=== PATIENT | male | born 1935 | race Caucasian/White ===

== ENCOUNTER → 2017-04-25 | Outpatient (CLI) | payer OTHER, MEDICARE | LOC: BHFA 14:00 | PROVIDERS: ATTEND Internal Medicine Cardiovascular Disease | DX: I25.10 Atherosclerotic heart disease of native coronary artery without angina pectoris (principal) ==

== ENCOUNTER → 2017-05-03 | Outpatient (CLI) | payer OTHER, MEDICARE | LOC: BHFA 13:30 | PROVIDERS: ATTEND Internal Medicine Cardiovascular Disease | DX: I25.10 Atherosclerotic heart disease of native coronary artery without angina pectoris (principal) | CPT/HCPCS: 78452; 93017; A9500; J2785 ==

== ENCOUNTER 2017-05-11 09:50 | Observation (INO) | payer OTHER, MEDICARE ==
[2017-05-11] MEDS ORDERED: NS 1,000 ML IV ONE (09:52)
[2017-05-11] MEDS ORDERED: ASPIRIN EC 325 MG TAB PO ONE (09:52)
[2017-05-11] MEDS ORDERED: diphenhydrAMINE 25 MG CAP PO ONE (09:52)
[2017-05-11] MEDS ORDERED: DIAZEPAM 5 MG TAB PO ONE (09:52)
[2017-05-11] MEDS ORDERED: FAMOTIDINE 20 MG TAB PO ONE (09:52)
--- NOTE | 2017-05-11 10:20 | CPEKG ---
Heart Rate: 64 RR Interval: 938 P-R Interval: 204 QRSD Interval: 174 QT Interval: 468 QTC Interval: 483 P [place]: 55 QRS [place]: -148 T Wave [place]: 28 EKG Severity - ABNORMAL ECG - EKG Impression: SINUS RHYTHM EKG Impression: VENTRICULAR PREMATURE COMPLEX EKG Impression: RIGHT BUNDLE BRANCH BLOCK Electronically Signed By: Benny Esparza 13-May-2017 08:21:44
[2017-05-11] MEDS ORDERED: CLOPIDOGREL BISULFATE 75 MG TAB ONE ×2 (10:25→15:15)
--- NOTE | 2017-05-11 10:36 | PDPROPOC ---
Sedation Plan of Care Sedation Plan of Care: vital signs stable, mental status noted, patient educated of risks, benefits, alternatives, patient can tolerate sedation ASA Classification: ASA 2 Planned drugs: fentanyl, midazolam Mallampati Reference Image: Patient passed 3-3-2 rule?: Yes
--- NOTE | 2017-05-11 10:36 | PDHPUP ---
History & Physical Update H&P update statement: This history and physical update is based on an assessment of the patient which was completed after admission or registration (within 24 hours), but prior to the surgery/procedure. H&P update: H&P reviewed & patient examined, no change in patient's condition since H&P completed
[2017-05-11 10:37] LABS: PLATELET COUNT 219 10^3/uL (150-400)
[2017-05-11 10:45] LABS: INR 1.15 (0.83-1.16); PROTIME(PATIENT) 14.9 SEC (12.0-15.0)
[2017-05-11] MEDS ORDERED: fentaNYL 100 MCG/2 ML INJ ONE (13:21)
[2017-05-11] MEDS ORDERED: LIDOCAINE 1% 300 MG/30 ML SDV ONE (13:21)
[2017-05-11] MEDS ORDERED: MIDAZOLAM 2 MG/2 ML VIAL ONE ×2 (13:21→14:45)
[2017-05-11] MEDS ORDERED: IOPAMIDOL (ISOVUE-370) 150 ML BTL IV ONE ×2 (13:22→14:38)
[2017-05-11] MEDS ORDERED: VERAPAMIL 5 MG/2 ML VIAL ONE (13:22)
[2017-05-11] MEDS ORDERED: HEPARIN 10,000 UNIT/10 ML MDV (1,000 UNIT/ML) ONE ×2 (13:22→14:38)
[2017-05-11] MEDS ORDERED: ONDANSETRON DISINTEGRATING 4 MG TAB PO PRN (15:00)
[2017-05-11] MEDS ORDERED: ACETAMINOPHEN 325 MG TAB PO PRN (15:00)
[2017-05-11] MEDS ORDERED: ATROPINE SULFATE 1 MG/10 ML SYR IVP PRN (15:00)
[2017-05-11] MEDS ORDERED: CLOPIDOGREL BISULFATE 75 MG TAB PO ONE (15:00)
[2017-05-11] MEDS ORDERED: ONDANSETRON 4 MG/2 ML VIAL IVP PRN (15:00)
[2017-05-11] MEDS ORDERED: NITROGLYCERIN 0.4 MG BTL SL PRN (15:00)
[2017-05-11] MEDS ORDERED: TEMAZEPAM 15 MG CAP PO PRN (15:00)
--- NOTE | 2017-05-11 15:07 | PDDXCAT ---
Diagnostic Cath Note - . Date: 05/11/17 Visual Specialist: Dimitris Indication: Class I/II angina, intolerance to med therapy or failure to respond High-risk criteria on non-invasive testing: stress-induced moderate-size multiple perfusion defects - Procedure Access: left groin Procedure: left heart catheterization, coronary angiography - Materials Left Heart Cath size: 6F Left Heart Cath materials: JL4.0, JR4.0 - Findings-Left Heart Catheterization LM: Unobstructed LAD: 85% proximal stenosis. LCX: 100% occluded RCA: 100% occluded rSVG: Patent to the right coronary artery, patent saphenous vein graft to the obtuse marginal branches, patent saphenous vein graft to the diagonal Complications: Inability to access the right femoral artery Estimated blood loss: <50ml Closure method: Angioseal Assessment: Progressive angina with abnormal nuclear stress test with critical proximal LAD stenosis. Patent vein graft to the distal right and lateral wall. Plan: PCI Intervention: After reviewing diagnostic angiograms elected proceed with PCI. Patient was anticoagulated with heparin. Using a 6 Albanian EBU 3.75 guiding catheter left main coronary selectively intubated. Using a 0.014 [place] J wire the LAD was entered the wire placed in the distal vessel. A pseudo lesion was seen in the mid vessel. It was primarily stented with a 3.5 by 16 mm synergy stent. Was post dilated with a 4 mm quantum balloon. Repeat angiogram showed LIVIER grade 3 flow. Conclusions successful PCI and stenting of the LAD Patient Problems: Problems Problem Status Onset Acute colitis Acute Atrial fibrillation Acute Coronary arteriosclerosis Acute Coronary arteriography abnormal Acute COPD (chronic obstructive pulmonary disease) Acute Cellulitis Acute
--- NOTE | 2017-05-11 15:35 | CPEKG ---
Heart Rate: 70 RR Interval: 857 P-R Interval: 204 QRSD Interval: 176 QT Interval: 484 QTC Interval: 523 P Coy: 54 QRS Coy: -145 T Wave Coy: 17 EKG Severity - ABNORMAL ECG - EKG Impression: SINUS RHYTHM EKG Impression: VENTRICULAR PREMATURE COMPLEX EKG Impression: RBBB AND LPFB Electronically Signed By: Benny Esparza 13-May-2017 08:21:48
[2017-05-11] MEDS ORDERED: ATORVASTATIN CALCIUM 40 MG TAB PO SCH (18:00)
[2017-05-11] MEDS: CARVEDILOL 6.25 MG TAB PO SCH (18:20)
[2017-05-11] MEDS: TRIAMCINOLONE 0.1% 15 GM CRTUBE TP SCH ×2 (18:43→23:43)
[2017-05-11] MEDS: FLUTICASONE HFA 220 MCG MDI IH SCH (19:55)
[2017-05-11] MEDS: buPROPion 75 MG TAB PO SCH (20:13)
[2017-05-12 05:35] VITALS: BP 136/83; PULSE 61; RESP 18; TEMP 97.9; O2SAT 91
[2017-05-12] MEDS ORDERED: LEVOTHYROXINE 50 MCG TAB PO SCH (06:00)
[2017-05-12] MEDS: CARVEDILOL 6.25 MG TAB PO SCH (08:25)
[2017-05-12] MEDS: buPROPion 75 MG TAB PO SCH (08:28)
[2017-05-12] MEDS: TRIAMCINOLONE 0.1% 15 GM CRTUBE TP SCH (08:30)
[2017-05-12] MEDS ORDERED: FUROSEMIDE 20 MG TAB PO SCH (09:00)
[2017-05-12] MEDS ORDERED: CLOPIDOGREL BISULFATE 75 MG TAB PO SCH (09:00)
[2017-05-12] MEDS ORDERED: MULTIVITAMINS 1 EACH TAB PO SCH (09:00)
[2017-05-12] MEDS ORDERED: CHOLECALCIFEROL VIT D3 2,000 UNITS TAB/CAP PO SCH (09:00)
[2017-05-12] MEDS ORDERED: DILTIAZEM CD 120 MG CAP PO SCH (09:00)
[2017-05-12] MEDS ORDERED: ASPIRIN EC 325 MG TAB PO SCH (09:00)
[2017-05-12] MEDS ORDERED: VITAMIN B COMPLEX 1 EA CAP/TAB PO SCH (09:00)
[2017-05-12] MEDS ORDERED: ASCORBIC ACID 500 MG TAB PO SCH (09:00)
--- NOTE | 2017-05-12 11:03 | PDDCSUM ---
Discharge Summary Discharge Summary: Admission date 05/11/2017. Discharge date 12/21/2017 admission diagnosis shortness of breath is anginal equivalent with intermediate nuclear stress test. Discharge diagnosis coronary artery disease status post PCI and stenting of the [place] LAD. Patent vein grafts to the lateral and inferior rankin. Medications unchanged. Follow-up cardiac rehabilitation. Chronic oxygen therapy required. Procedures done during this hospitalization left heart catheterization with PCI and stenting of the LAD. Narrative: Patient was admitted electively for progressive shortness of breath concerning for angina. He had a nuclear stress test suggesting anterior ischemia. Study revealed progression of the [place] LAD. He underwent successful stenting of the proximal LAD. Vein grafts were patent. He tolerated the procedure well he is up ambulating. With ambulation he continues to desaturate on room air with sats of 84%. Oxygen therapy restored this saturation. At the time this dictation is ready for discharge with follow-up as outlined above. Questions were answered. He is ready for discharge sign trachea
[2017-05-12] MEDS: FLUTICASONE HFA 220 MCG MDI IH SCH (11:10)
--- NOTE | 2017-05-12 11:47 | ASDISCHSUM ---
Discharge Information Plan Status:Home with No Needs Medically Cleared to Leave:05/11/2017 Discharge Date:05/11/2017 CM D/C Disposition:Home, Routine, Self-Care ADT D/C Disposition: Projected Discharge Date:05/11/2017 Transportation at D/C: Discharge Delay Reason: Follow-Up Date:05/11/2017 Discharge Slot: Final Diagnosis: Placement Information Patient Contact Information Contact Name:MARINELLI (MARTIE) Relationship: Address:[address] City:[place] Alternate Phone: [facility]/Zip Code:[place] [address] Email: Financial Information Financial Class:Medicare Primary Plan Desc:MEDICARE OUTPATIENT Primary Plan Number:[id number] Secondary Plan Desc:SILVA/TE SUPPLEMENT Secondary Plan Number:[id number] Assessment Information LACE LACE Length of stay for Answers: Less than 1 day current admission Acuity / Level of Answers: No Care: Did the patient have an inpatient admission? Comorbidities - select Answers: Other Notes: planned cardiac procedu re all that apply # of Emergency department Answers: 0 visits in the last 6 months Score: 1 Date Signed: 05/12/2017 11:46 AM Electronically Signed By:Rachana Vela RN Intervention Information
== END 2017-05-12 12:15 | disposition home or self-care (01) ==
LOC: FCATH 09:50 → F2W 15:01
PROVIDERS: ADMIT Internal Medicine Interventional Cardiology; ATTEND Internal Medicine Interventional Cardiology
PROC: 4A023N7 Measurement of Cardiac Sampling and Pressure, Left Heart, Percutaneous Approach (ICD-10-PCS; principal; 2017-05-11)
PROC: 02703ZZ Dilation of Coronary Artery, One Artery, Percutaneous Approach (ICD-10-PCS; principal; 2017-05-11)
PROC: B2111ZZ Fluoroscopy of Multiple Coronary Arteries using Low Osmolar Contrast (ICD-10-PCS; principal; 2017-05-11)
DX: I25.810 Atherosclerosis of coronary artery bypass graft(s) without angina pectoris (principal); I48.91 Unspecified atrial fibrillation; I10 Essential (primary) hypertension; J44.9 Chronic obstructive pulmonary disease, unspecified; G47.34 Idiopathic sleep related nonobstructive alveolar hypoventilation
CPT/HCPCS: 92928; 93005; 93455; C1725; C1760; C1769; C1874; C1887; C9600; J1200; J1644; J2250; J3010; Q9967

== ENCOUNTER → 2017-06-06 | Outpatient (CLI) | payer OTHER, MEDICARE | LOC: FIMAGING 10:30 | PROVIDERS: ATTEND Internal Medicine | DX: R91.1 Solitary pulmonary nodule (principal); J81.0 Acute pulmonary edema; I70.0 Atherosclerosis of aorta ==

== ENCOUNTER → 2017-06-23 | Outpatient (CLI) | payer OTHER, MEDICARE | LOC: FIMAGING 14:21 | PROVIDERS: ATTEND Internal Medicine | DX: Z13.83 Encounter for screening for respiratory disorder NEC (principal) ==

== ENCOUNTER → 2017-09-15 | Outpatient (CLI) | payer OTHER, MEDICARE | LOC: BHFA 10:45 | PROVIDERS: ATTEND Nurse Practitioner Adult Health | DX: I48.91 Unspecified atrial fibrillation (principal); I25.810 Atherosclerosis of coronary artery bypass graft(s) without angina pectoris; R09.02 Hypoxemia; E78.5 Hyperlipidemia, unspecified; I10 Essential (primary) hypertension ==

== ENCOUNTER → 2017-09-18 | Outpatient (CLI) | payer OTHER, MEDICARE | LOC: BHFA 09:00 | PROVIDERS: ATTEND Nurse Practitioner Adult Health | DX: I48.91 Unspecified atrial fibrillation (principal); I25.810 Atherosclerosis of coronary artery bypass graft(s) without angina pectoris ==

== ENCOUNTER → 2017-09-26 | Outpatient (CLI) | payer OTHER, MEDICARE | LOC: BHFA 10:45 | PROVIDERS: ATTEND Nurse Practitioner Adult Health | DX: I48.91 Unspecified atrial fibrillation (principal); I25.810 Atherosclerosis of coronary artery bypass graft(s) without angina pectoris; R09.02 Hypoxemia; Z99.81 Dependence on supplemental oxygen ==

== ENCOUNTER → 2017-12-06 | Outpatient (CLI) | payer OTHER, MEDICARE | LOC: FIMAGING 13:14 | PROVIDERS: ATTEND Radiology Diagnostic Radiology | DX: I83.891 Varicose veins of right lower extremity with other complications (principal); I83.028 Varicose veins of left lower extremity with ulcer other part of lower leg; L03.115 Cellulitis of right lower limb; L03.116 Cellulitis of left lower limb; Z86.79 Personal history of other diseases of the circulatory system ==

== ENCOUNTER → 2017-12-10 | Outpatient (CLI) | payer OTHER, MEDICARE | LOC: SBRMNEURO 20:00 | PROVIDERS: ATTEND Internal Medicine Pulmonary Disease | DX: G47.33 Obstructive sleep apnea (adult) (pediatric) (principal); G47.36 Sleep related hypoventilation in conditions classified elsewhere; G47.61 Periodic limb movement disorder ==

== ENCOUNTER → 2018-01-22 | Outpatient (CLI) | payer OTHER, MEDICARE | LOC: FIMAGING 13:11 | PROVIDERS: ATTEND Internal Medicine | DX: I77.0 Arteriovenous fistula, acquired (principal) ==

== ENCOUNTER 2018-03-29 07:18 | Inpatient (IN) | payer OTHER, MEDICARE ==
[2018-03-29] MEDS ORDERED: LR 1,000 ML IV ONE (07:48)
[2018-03-29] MEDS ORDERED: ONDANSETRON 4 MG/2 ML VIAL ONE ×2 (07:52→13:59)
[2018-03-29] MEDS ORDERED: ROCURONIUM 50 MG/5 ML VIAL ONE (07:52)
[2018-03-29] MEDS ORDERED: fentaNYL 100 MCG/2 ML INJ ONE (07:52)
[2018-03-29] MEDS ORDERED: LIDOCAINE 2% 5 ML SDV ONE (07:52)
[2018-03-29] MEDS ORDERED: PROPOFOL 200 MG/20 ML VIAL ONE ×2 (07:52→13:47)
[2018-03-29] MEDS ORDERED: DEXAMETHASONE 4 MG/ML VIAL ONE (07:52)
[2018-03-29 08:38] LABS: INR 1.19 (0.83-1.16); PROTIME(PATIENT) 15.3 SEC (12.0-15.0)
--- NOTE | 2018-03-29 08:48 | PDANEPAE ---
ANE Past Medical History - Cardiovascular History Hx Hypertension: Yes Hx Arrhythmias: Yes Hx Coronary Artery / Peripheral Vascular Disease: Yes Hx Palpitations: Yes Cardiovascular History Comment: CABG 12 years ago, STENTX2,ABLATION FOR AT FIB, CAD,DYSLIPIDEMIA. Last stent in June of 2017 - Pulmonary History Hx COPD: Yes Hx Asthma/Reactive Airway Disease: Yes Hx Recent Upper Respiratory Infection: No Hx Oxygen in Use at Home: Yes Hx Sleep Apnea: Yes Sleep Apnea Screening Result - Last Documented: Positive Pulmonary History Comment: O2 - 1.5-2L @ NOC AND W/EXERCISE - Neurologic History Hx Cerebrovascular Accident: No Hx Seizures: No Hx Dementia: No - Endocrine History Hx Diabetes: No Endocrine History Comment: HYPOTHYROID. PREDIAB NO MEDS - Renal History Hx Renal Disorders: No - Liver History Hx Hepatic Disorders: No - Neurological & Psychiatric Hx Hx Neurological and Psychiatric Disorders: No - Cancer History Hx Cancer: Yes Cancer History Comment: PRECANCEROUS LESIONS REMOVED - Congenital Disorder History Hx Congenital Disorders: No - GI History Hx Gastrointestinal Disorders: Yes Gastrointestinal History Comment: HX -GERD - Other Health History Other Health History: NEG - Chronic Pain History Chronic Pain: No - Surgical History Prior Surgeries: CABG. CARDIAC CATH W/STENT X2 -most recent 06/2017 [facility] ABLATION FOR AT FIB. HEMORRHOIDS. FATTY TUMOR BACK. GANGLION CYST ANKLE. COLONOSCOPIES ANE Review of Systems Review of Systems: - Exercise capacity METS (RN): 3 METS ANE Patient History - Allergies Allergies/Adverse Reactions: amiodarone Allergy (Verified 02/08/13 10:59) seasonal allergies Allergy (Uncoded 11/22/17 11:50) - Home Medications Home Medications: RX: Ascorbic Acid [Vitamin C 500 mg (*)] 500 mg PO DAILY 02/08/13 [Last Taken ] RX: Atorvastatin Calcium [Lipitor 40 mg (*)] 40 mg PO DAILY@18 02/08/13 [Last Taken 03/28/18] RX: Clopidogrel Bisulfate [Plavix (*)] 75 mg PO DAILY 02/08/13 [Last Taken 03/23] RX: Fluticasone Hfa 220 Mcg [Flovent 220 MCG Hfa MDI (*)] 2 puffs IH BID [Last Taken 1 Month Ago ~02/27/18] RX: Furosemide [Lasix 20 MG (*)] 20 mg PO DAILY 02/08/13 [Last Taken 03/28/18] RX: Multivitamins [Multivitamin (*)] 1 tab PO DAILY 02/08/13 [Last Taken ] RX: Diltiazem HCl [Cardizem Cd] 120 mg PO DAILY 10/13/14 [Last Taken 03/29/18 06 :15] RX: Warfarin Sodium [Coumadin 2.5MG (*)] 3.75 mg PO DAILY16 10/13/14 [Last Taken 03/23/18] Acetamn/Diphenhydramine 500/25 [Tylenol PM (*)] 1 each PO HS PRN 05/09/17 [Last Taken 03/28/18] Carvedilol [Coreg (*)] 12.5 mg PO BIDMEAL 05/09/17 [Last Taken 03/29/18 06:15] Cholecalciferol Vit D3 [Vitamin D3 (*)] 5,000 units PO DAILY 05/09/17 [Last Taken 03/26/18] Fluticasone/Salmeter 250/50Mcg [Advair 250/50 (*)] 1 puffs IH BID 05/09/17 [ Last Taken 03/28/18] Levothyroxine [Synthroid 50 mcg (*)] 50 mcg PO DAILY06 05/09/17 [Last Taken 06:00] RX: Herbals/Supplements -Info Only 1 ea PO DAILY 05/09/17 [Last Taken 03/26/18] Triamcinolone 0.1% [Triamcinolone 0.1% Cream (*)] 1 bryant TP TID MDD rash [Last Taken 2 Weeks Ago ~03/15/18] Vitamin B Complex [B Complex] 1 each PO DAILY 05/09/17 [Last Taken 03/26/18] buPROPion [Wellbutrin 75mg (*)] 75 mg PO BID 05/09/17 [Last Taken 1 Month Ago ~ 02/27/18] Potassium Cl 03/29/18 [Last Taken 03/28/18] - NPO status NPO Since - Liquids (Date): 03/29/18 NPO Since - Liquids (Time): 00:00 NPO Since - Solids (Date): 03/28/18 NPO Since - Solids (Time): 20:00 - Smoking Hx Smoking Status: Former smoker - Family Anes Hx Family Hx Anesthesia Complications: NEG ANE Labs/Vital Signs - Vital Signs Blood Pressure: 106/78 Heart Rate: 93 Respiratory Rate: 18 O2 Sat (%): 92 Height: 168.91 cm Weight: 92.986 kg ANE Physical Exam - Airway Neck exam: FROM Mallampati Score: Class 2 Mouth exam: normal dental/mouth exam - Pulmonary Pulmonary: no respiratory distress, no rales or rhonchi, clear to auscultation - Cardiovascular Cardiovascular: no murmur, rub, or gallop, irregularly irregular - ASA Status ASA Status: IV ANE Anesthesia Plan Anesthesia Plan: general endotracheal anesthesia
[2018-03-29] MEDS ORDERED: THROMBIN (BOVINE) 20,000 UNIT VIAL TP ONE (08:59)
[2018-03-29] MEDS ORDERED: BUPIVACAINE 0.5% 30 ML SDV ONE (09:00)
[2018-03-29] MEDS ORDERED: ceFAZolin 2 GM/DEXTROSE 100 ML IV ONE ×2 (09:00→13:30)
--- NOTE | 2018-03-29 09:40 | PDGENHP ---
History & Physical Chief Complaint: LT ILIAC ANEURYSM, RT PROFUNDA FISTULA History of Present Illness: PATIENT WAS FOUND TO HAVE THE ABOVE INCIDENTALLY ON A CT FOR WORK UP OF BILATERAL LE ULCERS. ULCERS HAVE HEALED. PATIENT IS HERE TO REPAIR ANEURYSM AND FISTULA. Pertinent Past, Social, Family History: FORMER SMOKER. AFIB. S/P CABG AND CAD Relevant Physical Exam: ULCERS IN LEGS HEALED. BILATERAL PALPABLE PEDAL PULSES. ABD SOFT. Cardiorespiratory Assessment: RRR, CTA
[2018-03-29] MEDS ORDERED: SUGAMMADEX SODIUM 200 MG/2 ML VIAL IVP ONE (10:44)
[2018-03-29] MEDS ORDERED: EPINEPHrine 1 MG/10 ML SYR IVP ONE (10:44)
[2018-03-29] MEDS ORDERED: PHENYLEPHRINE HCL 100 MCG/ML SYR ONE ×3 (10:44→12:29)
[2018-03-29] MEDS ORDERED: HEPARIN 10,000 UNIT/10 ML MDV (1,000 UNIT/ML) ONE ×2 (12:35→13:22)
[2018-03-29] MEDS ORDERED: IOPAMIDOL (ISOVUE-300) 100 ML BTL ONE (12:51)
[2018-03-29] MEDS ORDERED: PHENYLEPHRINE 10 MG/ML SDV ONE (13:19)
[2018-03-29] MEDS ORDERED: PROTAMINE SULFATE 50 MG/5 ML VIAL IVP ONE (14:24)
[2018-03-29] MEDS ORDERED: ONDANSETRON 4 MG/2 ML VIAL IVP PRN ×2 (15:02→15:22)
[2018-03-29] MEDS ORDERED: POLYETHYLENE GLYCOL 3350 17 GM PKT PO PRN (15:02)
[2018-03-29] MEDS ORDERED: MAGNESIUM HYDROXIDE 30 ML UDCUP PO PRN (15:02)
[2018-03-29] MEDS ORDERED: BISACODYL 10 MG SUPP PR PRN (15:02)
[2018-03-29] MEDS ORDERED: LACTULOSE 20 GM/30 ML UDCUP PO PRN (15:02)
[2018-03-29] MEDS ORDERED: ONDANSETRON DISINTEGRATING 4 MG TAB PO PRN (15:02)
--- NOTE | 2018-03-29 15:05 | PDRADPN ---
Radiology Procedure Note Date of Procedure: 03/29/18 Radiologist: Ofe Workman Anesthesia: GET(General Endotracheal) Pre-op Diagnosis: RT LEG AVF; LT ILIAC ANEURYSM Post-op Diagnosis: SAME Indication: HEART FAILURE; ENLARGING ANEURYSM Procedure: STENTGRAFT FOR REPAIR Finding(s): AVF EXCLUDED AND RESOLVED; LT ILIAC ANEURYSM EXCLUDED. Inf/Abcess present in the surg proc area at time of surgery?: No
[2018-03-29] MEDS ORDERED: NS 1,000 ML IV SCH (15:15)
[2018-03-29] MEDS ORDERED: PROMETHAZINE HCL 25 MG/ML INJ IVP PRN (15:22)
[2018-03-29] MEDS ORDERED: NALOXONE HCL 0.4 MG/ML INJ IVP PRN (15:22)
[2018-03-29] MEDS ORDERED: fentaNYL 100 MCG/2 ML INJ IVP PRN (15:22)
[2018-03-29] MEDS ORDERED: HYDROmorphONE/DILAUDID 2 MG/ML INJ IVP PRN (15:22)
[2018-03-29] MEDS ORDERED: HYDROCODONE/APAP 5/325 TAB PO PRN (15:22)
[2018-03-29] MEDS ORDERED: PHENYLEPHRINE HCL 100 MCG/ML SYR IVP PRN (15:22)
[2018-03-29] MEDS ORDERED: LR 500 ML IV PRN (15:22)
[2018-03-29] MEDS ORDERED: METOCLOPRAMIDE 10 MG/2 ML VIAL IVP PRN (15:22)
--- NOTE | 2018-03-29 15:27 | POSTANESTH ---
Post Anesthetic Evaluation Cardiovascular Status: Normal, Stable, Tx Over/Under Hydration Level of Consciousness/Mental Status: Can Participate in Eval Pain Control: Adequate, Prn Tx Ordered Nausea/Vomiting Control: Adequate, Prn Tx Ordered Complications Possibly Related to Anesthesia: None Noted
--- NOTE | 2018-03-29 15:57 | GOP ---
DATE OF OPERATION: 03/29/2018 SURGEON: Sidney Patel MD SHOVEL OILER: SCOTTY Levy ANESTHESIOLOGIST: Dr. Zhou Landon. PREOPERATIVE DIAGNOSIS: 1. Left iliac aneurysm. 2. Right femoral arteriovenous fistula. POSTOPERATIVE DIAGNOSIS: 1. Left iliac aneurysm. 2. Right femoral arteriovenous fistula. PROCEDURE PERFORMED: 1. Exposure of left iliac artery for endovascular repair. 2. Repair of left iliac artery. FINDINGS: Patient was found to have a moderately calcified common femoral artery with a high takeoff of the profunda femoris and the superficial femoral artery. ESTIMATED BLOOD LOSS: less than 150 cc. DESCRIPTION OF PROCEDURE: The patient was taken to the operating room where he received satisfactory general endotracheal anesthesia by Dr. Landon, placed in supine position, prepped and draped in th e usual sterile fashion. A vertical groin incision was made and carried through the subcutaneous tissue. Hemostasis was obtai deandre. Dissection extended down to the inguinal ligament and the common femoral, superficial femoral, and profunda femoris arteries were all dissected free and controlled with vessel loops. After adequa te exposure was achieved, the case was turned over to Dr. Workman for endovascular stent repair was aneur ys. After that was completed successfully, the sheath was removed and control was obtained of the a rtery. All vessels were flushed, and the arteriotomy was then closed with a running 4-0 Prolene sutu re. The suture line was tested with backflow from the profunda femoris artery and then antegrade nicholas w from the common femoral flow was first flushed down the profunda femoris and then back down the juan teddy SFA, and the arteriotomy was closed with a running 4-0 Prolene suture, following which flow was r eestablished. He tolerated the procedure well. The wound was infiltrated with 0.5% Marcaine and nette sed in layers using 2-0 Vicryl for the fascia with 3-0 Vicryl for the subcu, and skin guille for the skin. He tolerated procedure well taken recovery room in good condition. COMPLICATIONS: No complications. /[id number]/MODL
[2018-03-29] MEDS: SENNOSIDES/DOCUSATE SODIUM TAB PO SCH (20:58)
[2018-03-29] MEDS: ACETAMINOPHEN 325 MG TAB PO PRN (20:59)
[2018-03-29] MEDS: OXYCODONE/APAP 5/325 TAB PO PRN (20:59)
--- NOTE | 2018-03-29 21:18 | PDMN ---
Medical Necessity Medical necessity: Pt meets IP criteria as of 03/29/[address] [facility] S-131 ( Abdominal Aortic Aneurysm, Endovascular Repair); Medicare IP only procedure
[2018-03-30] MEDS: ACETAMINOPHEN 325 MG TAB PO PRN ×2 (02:17→21:52)
[2018-03-30] MEDS: OXYCODONE/APAP 5/325 TAB PO PRN (02:18)
[2018-03-30 05:21] LABS: PLATELET COUNT 170 10^3/uL (150-400)
--- NOTE | 2018-03-30 09:56 | SOAPPROG ---
MARGARETH Progress Note Assessment/Plan: Assessment: s/p CARLOS endograft repair of LT JEFF aneurysm, and covered stent repair of RT profunda-CFV fistula. SOB/dizziness: ? related to acute decrease in cardiac pre-load. Also would be concerned about RT DVT with such acute decrease in blood volume into his RT venous system. No issues from procedural/cut down standpoint otherwise. Plan: 1. I asked Dr. Holliday to consult on the patient and help manage medically. Appreciate Dr. Holliday's help. 2. May need to keep in house until cardiac status and WBC elevation stabilize. 3. Discussed with Dr. Patel. 03/30/18 09:52 Subjective: per patient's nurse: patient was a bit short out of breath last night, and dizzy with walking this morning. has been able to sit at bed side. tolerating PO. Incisions are without hematoma. Pedal pulses unchanged. Objective: Vital Signs Temp Pulse Resp BP Pulse Ox 36.4 C 92 18 112/90 H 96 03/30/18 08:00 03/30/18 08:00 03/30/18 08:00 03/30/18 08:00 03/30/18 08:00 Laboratory Results 03/30/18 05:00 03/29/18 03/30/18 03/31/18 05:59 05:59 05:59 Intake Total 3934 Output Total 1575 Balance 2359 PT 15.3 SEC (12.0-15.0) H 03/29/18 08:20 INR 1.19 (0.83-1.16) H 03/29/18 08:20 labs noted. ICD10 Worksheet Patient Problems: Problems Problem Status Onset Acute colitis Acute Atrial fibrillation Acute COPD (chronic obstructive pulmonary disease) Acute Cellulitis Acute Coronary arteriography abnormal Acute Coronary arteriosclerosis Acute
--- NOTE | 2018-03-30 09:57 | PDCONSULT ---
Superintendent Construction Note: ASSESSMENT 82-year-old male with COPD on 2 L per minute, MICAH and atrial fibrillation and pulmonary hypertension with ongoing dyspnea exertion and some lightheadedness after femoral AVF repair as well as iliac aneurysm repair. Patient is used to seen a higher preload given high output AVF and may explain some of his relative lightheadedness/hypotension. His shortness of breath is chronic and is proceeded presumed development of fistula. I suspect this is multifactorial related to COPD, diastolic dysfunction and transient flash pulmonary edema wall he exercises due to an elevated LVEDP. I suggest against direct treatments for secondary pulmonary hypertension as PH specific therapies will likely worsen his condition. There are however adjunct to therapies that have modest benefit in his disease. These include inhaled beta beta agonists to increased exercise capacity in group 2 and 3 PH, H2 blockers in group 2 PH and spironolactone for K sparing effect and RV remodeling in the setting of diuresis. # shortness of breath and dyspnea exertion # pulmonary hypertension, WHO group 2 and 3. No risk factors for group 1 or 4 disease # atrial fibrillation # COPD # MICAH on CPAP # obesity # coronary artery disease # chronic hypoxemic respiratory failure # femoral AV fistula status post repair # iliac aneurysm status post repair # anxiety PLAN # CXR now # TTE to evaluate cardiac function post procedure # may need to run slightly positive fluid balance for adequate preload given preload reduction after correcting high output AVF # goal SpO2 sat no greater than 94% as hyperoxia can worsening V/Q matching and increase hypercarbia # H2 gualberto for disease attenuating properties in non group 1 PH. [facility] 197.12 (2018[facility] 8103-8016. # inhaled beta agonist have been shown to improve pulmonary vascular reserve and cardiac output without increases in LVEDP in PH due to HFpEF Circ Res. 2018 Jan 30 # add spironolactone for K sparing effect in RV remodeling # continue spironolactone discharge with follow-up labs an outpatient 2 weeks # agree with Spiriva, would add long acting beta agonist as above such as stiolto respimat as an outpatient # continue home CPAP # I am happy to see patient in pulmonary vascular disease clinic for follow-up at [facility] Pul[facility] Chief complaint Shortness of breath GRISELDA Donohue is a very pleasant 82-year-old male with multiple medical problems including severe coronary disease COPD, secondary pulmonary hypertension and chronic hypoxemic respiratory failure who was hospitalized after undergoing percutaneous repair of femoral AV fistula and iliac aneurysm. Postprocedure he complains of mild lightheaded and dizziness. He states this is improving however still present. He also complains of chronic ongoing shortness of breath that has proceeded his recent cardiac catheterizations and procedure. Is been evaluated at [facility] as well as [facility] by multiple specialists for this. As of this date this is attributed to multifactorial mechanisms as mentioned in assessment and plan above. At time of interview patient denies fevers chills nausea or vomiting focal neurologic deficits. He also denies skin changes, weight loss, hemoptysis, cough. He states compliance with his medications. He is been in cardiac and pulmonary rehab for years and is unsure of what improves or worsens his shortness of breath. He also significant underlying anxiety not on medications Allergies Amiodarone Medications Atorvastatin 40, RT XL, carvedilol, Co Q10, Lasix 40, Klor-Con 20, Synthroid 50 , magnesium, multivitamins, Plavix, Spiriva with Handy haler, vitamin-B, vitamin -C, warfarin Past medical history Coronary disease status post 5 vessel CABG in 2006, subsequent PCI, moderate to severe COPD, allergies, obesity, chronic hypoxemic respiratory failure, MICAH moderate compliance of CPAP, allergic rhinitis, pulmonary hypertension Social history Lifelong smoker quit years ago, no active alcohol no marijuana use lives in [facility] Review of systems A comprehensive 10 point review of systems was obtained is negative except as per HPI Consult Vitals Afebrile, pulse 78, blood pressure 110/78, respirations 16 91% on 3 L nasal cannula Physical exam GEN: NAD, up in bed, interactive NEURO: A&Ox3, CN 2-12 GI, no focal deficit HEENT: PERRL, EOMI, MMM, OP clear NECK: supple, trachea midline CHEST normal shape, no pes excavatum, irregularly irregular CVS: rrr no m/r/g PULM: Decreased breath sounds bilaterally no wheezes rhonchi or rales. Nasal cannula tube in place ABD: soft, NT, ND, NABS EXT: Trace lower extremity full ROM, right great bandage site clean dry and intact SKIN: warm, dry, intact, no rash PSYCH CAM negative, appropriate affect Labs reviewed Imaging I personally reviewed interpreted patient's relevant radiographic images well as formal radiology reads 03/29/2018 chest x-ray Data FEV1 1.7 70%, ratio 62%
[2018-03-30] MEDS ORDERED: FUROSEMIDE 20 MG TAB PO SCH (10:00)
[2018-03-30] MEDS: CARVEDILOL 6.25 MG TAB PO SCH (11:15)
[2018-03-30] MEDS: LEVOTHYROXINE 50 MCG TAB PO SCH (11:16)
[2018-03-30] MEDS: CLOPIDOGREL BISULFATE 75 MG TAB PO SCH (11:17)
[2018-03-30] MEDS: SENNOSIDES/DOCUSATE SODIUM TAB PO SCH ×2 (11:18→21:43)
[2018-03-30] MEDS: DILTIAZEM CD 120 MG CAP PO SCH ×2 (11:19→21:42)
[2018-03-30] MEDS: FAMOTIDINE 20 MG TAB PO SCH ×2 (12:10→21:42)
[2018-03-30] MEDS: SPIRONOLACTONE 25 MG TAB PO SCH ×2 (13:13→17:35)
--- NOTE | 2018-03-30 13:21 | ECHO ---
[email or web address] [address] [address] Main: [phone] Fax: Transthoracic Echocardiogram Name: FRANCIS FAULKNER MR#: [id number] Study Date: 03/30/2018 Study Time: 09:50 AM Date of : 1935 Age: 82 year(s) Height: 167.6 cm (66 in.) Weight: 92.99 kg (205 lb.) BSA: 2.02 m2 Gender: Male Examination: Echo Indication: Post Iliac aneurysm and right femoral aneurysm repair, Dizziness post procedure. Image Quality: Contrast: Requested by: Ofe Workman BP: 104 mmHg/77 mmHg Heart Rate: Rhythm: Atrial fibrillation Indication: Post Iliac aneurysm and right femoral aneurysm repair, Dizziness post procedure. Procedure Staff Conveyor Tender: Tin Lyons RDCS Reading Physician: Hosea Garza MD Requesting Provider: Conclusions: Normal size left ventricle. Mild concentric LV hypertrophy. Normal global systolic LV function. EF is 66 %. Grade 1 diastolic dysfunction (abnormal relaxation). Normal RV function. The left atrium is severely dilated. The right atrium is mildly dilated. Trivial mitral valve regurgitation. Moderate calcific aortic valve stenosis. Mean aortic valve gradient 22. There is no aortic valve regurgitation. Mild tricuspid regurgitation is present. The pulmonary artery pressure is mildly increased. Right ventricular systolic pressure measures 40mmHg. No pericardial effusion. No pleural effusion. Compared to Echo in October 2014 there is now moderate aortic stenosis and mild pulmonary hypertension. Measurements: Chambers Valvular Assessment AV/MV Valvular Assessment TV/PV Normal Normal Normal Name Value Range Name Value Range Name Value Range Ao Christa (MM): 3.6 cm (2.2 cm-3.7 AV Vmax: 3.11 m/s (1 m/s-1.7 TR Vmax: 2.95 mm/s ( - ) cm) m/s) TR PGmax: 35 mmHg ( - ) IVSd (2D): 0.8 cm (0.6 cm-1.1 AV maxP mmHg ( - ) syst. PAP: 40 mmHg ( - ) cm) AV meanP mmHg ( - ) PV Vmax: 1.34 m/s (0.6 m/s-0.9 m/s) Patient: FRANCIS FAULKNER Study Date: 03/30/2018 Page 1 of 2 09:50 AM LVDd (2D): 6.0 cm (4.2 cm-5.9 LVOT Vmax: 0.76 m/s (0.7 m/s-1.1 PV PGmax: 7 mmHg ( - ) cm) m/s) LVDs (2D): 3.8 cm (2.1 cm-4 THANH (Vmax): 1.2 cm2 ( - ) cm) THANH (VTI): 1.1 cm ( - ) LVPWd (2D): 1.1 cm (0.6 cm-1 MV E Vmax: 0.66 m/s ( - ) cm) MV A Vmax: 0.25 m/s ( - ) LVOTd 2.5 cm 2.5 cm mm MV E/A: 2.64 ( - ) LVEF (2D): 66 (>=54 %) Continued Measurements: Chambers Valvular Assessment AV/MV Valvular Assessment TV/PV Name Value Name Value Name Value LADs Lon.9 cm MV E' Septal: 0.03 m/s CVP (est.): 5 mmHg LA Area: 29.5 cm2 MV E/E' Septal: 20.30 LA Volume: 126 ml MV E/E' Lateral: 6.00 LA Volume Index: 62.4 ml/m2 Findings: Left Ventricle: Normal size left ventricle. Mild concentric LV hypertrophy. Normal global systolic LV function. EF is 66 %. Grade 1 diastolic dysfunction (abnormal relaxation). Right Ventricle: Normal size right ventricle. Normal RV function. Left Atrium: The left atrium is severely dilated. Right Atrium: The right atrium is mildly dilated. Mitral Valve: The mitral valve is normal in appearance. Mild mitral annular calcification. Trivial mitral valve regurgitation. Aortic Valve: The aortic valve is tri-leaflet. Mild aortic cusp calcification is noted. Moderate calcific aortic valve stenosis. Mean aortic valve gradient 22. There is no aortic valve regurgitation. Tricuspid Valve: The tricuspid valve appears normal. Mild tricuspid regurgitation is present. The pulmonary artery pressure is mildly increased. Right ventricular systolic pressure measures 40mmHg. Pulmonic Valve: The pulmonic valve is normal in appearance and function. There is no pulmonic regurgitation seen. Aorta: The aorta is normal. Pericardium: No pericardial effusion. No pleural effusion. (No Signature Object) Patient: FRANCIS FAULKNER Study Date: 03/30/2018 Page 2 of 2 09:50 AM [id number]
[2018-03-30] MEDS ORDERED: WARFARIN SODIUM 2.5 MG TAB PO SCH (16:00)
--- NOTE | 2018-03-30 16:57 | ASMTCMCOM ---
CM Note CM Note Notes: Pt is 82 yo M here to repair Iliac Aneurysm and fistula. Pt lives with . No therapies ordered at this time. Dispo JOHN, BEAR to follow. Plan: TBD Date Signed: 03/30/2018 04:56 PM Electronically Signed By:PABLO Tracey
[2018-03-30] MEDS ORDERED: ATORVASTATIN CALCIUM 40 MG TAB PO SCH (18:00)
--- NOTE | 2018-03-30 18:44 | GCON ---
DATE OF CONSULTATION: 03/30/2018 REFERRING PHYSICIAN: Ofe Workman MD REASON FOR CONSULTATION: Dizziness. HISTORY OF PRESENT ILLNESS: An 82-year-old male with multiple comorbidities including pulmonary hype rtension, atrial fibrillation, COPD on 2 L at night, CAD with exertional dyspnea and dizziness after a femoral AVF and iliac aneurysm repair. The patient is a poor historian. He is difficult to keep on track. Per my review of systems reports chronic shortness of breath that has progressed over the last 6 months, especially with exertion. D enies chest pain or dizziness at home. He has had extensive cardiac and pulmonary evaluation at [facility]. This includes MPI stress test April 2017 that was negative for ischemia. Echo July 2017 showed EF of 45% to 50% with grade 1 diastolic heart failure. No aortic stenosis and an RVSP of 62 mmHg. Had PCI to LAD in May [address] Shanks. He is feeling better this afternoon with minimal dizziness. No fevers, chills, or sweats. No nausea , vomiting, or diarrhea. PAST MEDICAL HISTORY: Pulmonary hypertension, atrial fibrillation, COPD, MICAH on CPAP, obesity, coron al artery disease with history of 5 vessel CABG with PCI in May of this year, anxiety, allergic rhinitis, asthma, GERD, femoral AV fistula status post repair, iliac aneurysm status post repair, hy pothyroidism. PAST SURGICAL HISTORY: Tonsillectomy, CABG five-vessel, lipoma, left knee surgery, alcohol dependenc e, gout. FAMILY HISTORY: Coronary artery disease, heart failure, colon cancer, breast cancer. SOCIAL HISTORY: Lives in [place] with his . Previously worked for [employer]. Had a 30 pack tobacco history. Drinks 2-3 glasses of wine nightly. ALLERGIES: Amiodarone. HOME MEDICATIONS: Potassium chloride 10 mEq at bedtime, Spiriva, diltiazem 120 mg twice daily, Coreg 12.5 daily, Coumadin 3.75 daily, multivitamin, levothyroxine 50 mcg daily, oral salt supplement, [place] ix 20 daily, Plavix 75 daily, atorvastatin 40, vitamin C 500 daily, Tylenol. PHYSICAL EXAMINATION: VITAL SIGNS: Temperature 36.5, blood pressure is 113/66, improved from 102/65 , heart rate is in the 90s, respiration 21, 95% on 3 L. GENERAL: Sitting up in bed, in no acute dis tress. HEENT: PERRLA. Moist mucous membranes. CARDIOVASCULAR: Irregularly irregular. Systolic m urmur present. LUNGS: Diminished but clear. No wheezes or crackles. ABDOMEN: Obese, soft, nonten erica, nondistended. Positive bowel sounds. : No Correia. MUSCULOSKELETAL: Left groin surgical inc ision guille with some sanguinous drainage. Neuro: 2 through 12 intact. PSYCH: He is alert and o riented x3. LABS: WBC 16, hemoglobin 13, hematocrit 40, platelets 170. INR is 1.1. Sodium 134, potassium 4.3, carbon oxide 103, carbon dioxide 27, BUN 14, creatinine 0.6, glucose 145, calcium 8.4, mag 1.9. IMAGING: Chest x-ray personally reviewed by me: Cardiomegaly, sternotomy wires, mild pulmonary rosemary a. Blunted costophrenic angle on the left. Echocardiogram 03/30/2018, normal LV function. EF 66%. Grade 1 diastolic dysfunction. LA is severely dilated. Moderate aortic valve stenosis. Mean aorti c valve gradient 22, RVSP is 40 mmHg. No effusion. ASSESSMENT AND PLAN: 1. Femoral arteriovenous fistula/iliac aneurysm: Status post repair. H and H stable. Resume antip latelets when okay by surgery. May need fluids overnight if becomes hypotensive given his preload re duction after correcting the high-output AVF. 2. Dizziness/dyspnea: The patient is a poor historian, but as per review of outside records from [facility] and [facility] this has been a chronic issue for months. It is likely multifactorial as he does have underlying pulmonary hypertension, COPD, MICAH. Echo today demonstrates known diastoli c heart failure along with mild aortic stenosis as noted. Acute symptoms might be due to mild diasto lic heart failure. He is used to a higher preload given his high output AVF which has been resolved with repair. Currently hemodynamically stable. Will hold diuretics for now. 3. Atrial fibrillation: He is on diltiazem and Coreg. 4. Coronary artery disease: Plavix, beta gualberto, statin. 5. Hypothyroidism: Levothyroxine. 6. Chronic obstructive pulmonary disease: No evidence of exacerbation. 7. Obstructive sleep apnea: Continue CPAP. 8. Alcohol dependence: Drinks 2-3 glasses of wine daily. No evidence of withdrawal now. If remain s hospitalized will dose wine with meals tomorrow. 9. Anxiety: Stable. 10. Deep venous thrombosis prophylaxis: On Coumadin. 11. Disposition: We will continue to follow. Please call with any questions. /[id number]/MODL
--- NOTE | 2018-03-30 19:09 | SOAPPROG ---
SOAP Progress Note Assessment/Plan: Assessment: doing ok from surgery/ wound ok/ pulses good/ rt femoral thrill gone Plan:home when ok with IM 03/30/18 19:08 Objective: Vital Signs Temp Pulse Resp BP Pulse Ox 36.7 C 108 H 18 107/72 95 03/30/18 16:00 03/30/18 16:00 03/30/18 16:00 03/30/18 16:00 03/30/18 16:00 Laboratory Results 03/30/18 05:00 03/30/18 12:10 03/29/18 03/30/18 03/31/18 05:59 05:59 05:59 Intake Total 3934 700 Output Total 1575 600 Balance 2359 100 PT 15.3 SEC (12.0-15.0) H 03/29/18 08:20 INR 1.19 (0.83-1.16) H 03/29/18 08:20 ICD10 Worksheet Patient Problems: Problems Problem Status Onset Acute colitis Acute Atrial fibrillation Acute COPD (chronic obstructive pulmonary disease) Acute Cellulitis Acute Coronary arteriography abnormal Acute Coronary arteriosclerosis Acute
[2018-03-30] MEDS ORDERED: DILTIAZEM CD 120 MG CAP PO SCH (21:00)
[2018-03-31] MEDS ORDERED: MELATONIN 3 MG TAB PO SCH (00:45)
[2018-03-31] MEDS: CEPACOL LOZENGE PO PRN ×2 (04:13→05:40)
[2018-03-31] MEDS: LEVOTHYROXINE 50 MCG TAB PO SCH (05:12)
[2018-03-31 05:22] LABS: INR 1.17 (0.83-1.16); PROTIME(PATIENT) 15.1 SEC (12.0-15.0)
[2018-03-31 07:51] VITALS: BP 122/93
[2018-03-31] MEDS: SPIRONOLACTONE 25 MG TAB PO SCH (08:03)
[2018-03-31] MEDS: DILTIAZEM CD 120 MG CAP PO SCH (08:04)
[2018-03-31] MEDS: SENNOSIDES/DOCUSATE SODIUM TAB PO SCH (08:04)
[2018-03-31] MEDS: FAMOTIDINE 20 MG TAB PO SCH (08:04)
[2018-03-31] MEDS: CLOPIDOGREL BISULFATE 75 MG TAB PO SCH (08:05)
[2018-03-31] MEDS: CARVEDILOL 6.25 MG TAB PO SCH (08:05)
[2018-03-31] MEDS ORDERED: ASCORBIC ACID 500 MG TAB PO SCH (09:00)
[2018-03-31] MEDS ORDERED: Herbals/Supplements -Info Only PO SCH (09:00)
[2018-03-31] MEDS ORDERED: VITAMIN B COMPLEX 1 EA CAP/TAB PO SCH (09:00)
[2018-03-31] MEDS ORDERED: CHOLECALCIFEROL VIT D3 2,000 UNITS TAB/CAP PO SCH (09:00)
[2018-03-31] MEDS ORDERED: MULTIVITAMINS 1 EACH TAB PO SCH (09:00)
--- NOTE | 2018-03-31 12:13 | GDS ---
DISCHARGE DIAGNOSES: 1. Dizziness. 2. Femoral AV fistula/iliac aneurysm status post repair. 3. Atrial fibrillation. 4. CAD. 5. Hypothyroidism. 6. COPD. 7. MICAH, on CPAP. 8. Alcohol dependence. 9. Anxiety. 10. Obesity. 11. Chronic hypoxemic respiratory failure. 12. Pulmonary hypertension. HISTORY OF PRESENT ILLNESS: This is an 82-year-old male with history of CAD, COPD, atrial fibrillati on, for elective repair of femoral AVF and iliac aneurysm. Repair was done on March 29. Medicine consult was requested for lightheadedness and mild hypotension after his procedure. The patient is a poor historian but does state chronic dizziness and shortness of breath. This was c onfirmed by review of his outside records from [facility] HOSPITAL COURSE BY PROBLEM: 1. Dizziness, dyspnea: This is likely perioperative with anesthesia and preload reduction after cor recting the high output fistula. Today, he is asymptomatic. Echo yesterday showed known diastolic h eart failure with mild aortic stenosis and pulmonary hypertension. Recommend he follow up with both his cornice maker and electrical discharge machine operator. He is currently hemodynamically stable. 2. Femoral AV fistula/iliac aneurysm, status post repair: H and H stable. 3. Permanent atrial fibrillation: Continue Coreg, dilt and Coumadin. He is to follow up with his P CP for an INR check. 4. CAD: Plavix, beta-gualberto, statin. 5. Hypothyroidism: Levothyroxine. 6. COPD: No evidence of exacerbation. Follow up with his electrical discharge machine operator. 7. MICAH: Continue CPAP. 8. Alcohol dependence: Drinks 2 to 3 glasses of wine daily. There was no evidence of withdrawal he re. He was counseled on cessation. 9. Anxiety: Stable. 10. Patient is stable for discharge home with his . FOLLOW UP: 1. Primary care physician, Dr. Copeland. 2. Train Master, Dr. Shanks. 3. Assembly Loader. 4. INR check. 5. Dr. Patel. PHYSICAL EXAMINATION: VITAL SIGNS: Today, temperature 36.7, blood pressure 120s over 90s, respirati on 19, and 92% on 2 L. GENERAL: He is obese, sitting up in bed, no acute distress. HEENT: PERRLA. Moist mucous membranes. CV: Irregularly irregular. Surgical incisions healing well. No purulenc e. NEURO: 2 through 12 intact. PSYCH: Alert and oriented x3. TIME SPENT ON DISCHARGE: Greater than 30 minutes at bedside with the patient, , coordinating presentation medical center [facility], and discussing case with Dr. Glez. /[id number]/MODL
--- NOTE | 2018-03-31 12:28 | SOAPPROG ---
SOAP Progress Note Assessment/Plan: Assessment: s/p exposure and repair iliac artery aneurysm and av fistula Doing well Wound on leg nearly healed May shower F/U with Dr. Patel in 2 weeks for staple removal No extreme bending of leg - less than 90 degrees, some slouch preferred S: Feeling well, eager to discharge O: Incision R groin cdi L groin guille cdi Wound on left lower extremity nearly healed Foot warm with palpable DP Plan: 03/31/18 12:27 03/31/18 12:29 Objective: Vital Signs Temp Pulse Resp BP Pulse Ox 36.7 C 108 H 22 H 122/93 H 92 03/31/18 07:48 03/31/18 08:05 03/31/18 07:48 03/31/18 08:05 03/31/18 07:48 Laboratory Results 03/31/18 05:00 03/31/18 05:00 03/30/18 03/31/18 04/01/18 05:59 05:59 05:59 Intake Total 3934 1500 Output Total 1575 1475 Balance 2359 25 PT 15.1 SEC (12.0-15.0) H 03/31/18 05:00 INR 1.17 (0.83-1.16) H 03/31/18 05:00 ICD10 Worksheet Patient Problems: Problems Problem Status Onset Acute colitis Acute Atrial fibrillation Acute COPD (chronic obstructive pulmonary disease) Acute Cellulitis Acute Coronary arteriography abnormal Acute Coronary arteriosclerosis Acute
--- NOTE | 2018-04-02 08:20 | CPEKG ---
Test Reason : OPEN Blood Pressure : / mmHG Vent. Rate : 090 BPM Atrial Rate : 137 BPM P-R Int : 154 ms QRS Dur : 169 ms QT Int : 410 ms P-R-T Axes : 000 164 -01 degrees QTc Int : 502 ms Atrial fibrillation Right bundle branch block Atrial fibrillation is new in comparison to prior Confirmed by Benny Esparza ([id number] on 04/02/2018 8:19:58 AM Referred By: Confirmed By:Benny Esparza
== END 2018-03-31 13:02 | disposition home or self-care (01) | DRG 271 ==
LOC: FIMAGING 07:18 → F2N 15:02
PROVIDERS: ADMIT Radiology Diagnostic Radiology; ATTEND Radiology Diagnostic Radiology
DX: I72.3 Aneurysm of iliac artery (principal); J96.11 Chronic respiratory failure with hypoxia; I77.0 Arteriovenous fistula, acquired; I48.2 Chronic atrial fibrillation; I25.10 Atherosclerotic heart disease of native coronary artery without angina pectoris; E03.9 Hypothyroidism, unspecified; J44.9 Chronic obstructive pulmonary disease, unspecified; G47.33 Obstructive sleep apnea (adult) (pediatric); F10.20 Alcohol dependence, uncomplicated; F41.8 Other specified anxiety disorders; E66.9 Obesity, unspecified; I27.20 Pulmonary hypertension, unspecified; I10 Essential (primary) hypertension; Z95.5 Presence of coronary angioplasty implant and graft; Z87.891 Personal history of nicotine dependence; Z95.1 Presence of aortocoronary bypass graft
CPT/HCPCS: C1725; C1760; C1769; C1773; C1874; C1892; C1893; C1894; C2628; J0690; J1100; J1644; J2370; J2405; J2704; J2720; J3010; Q9967

== ENCOUNTER → 2018-05-15 | Outpatient (CLI) | payer OTHER, MEDICARE | LOC: FIMAGING 15:34 ==

== ENCOUNTER → 2018-05-17 | Outpatient (CLI) | payer OTHER, MEDICARE | LOC: FIMAGING 10:01 | PROVIDERS: ATTEND Internal Medicine Pulmonary Disease | DX: I50.9 Heart failure, unspecified (principal); J44.9 Chronic obstructive pulmonary disease, unspecified ==

== ENCOUNTER → 2018-06-19 | Day surgery (SDC) | payer OTHER, MEDICARE ==
[~2018-06-19] MED LIST: FLUMAZENIL 0.5 MG/5 ML MDV IVP PRN; LIDO/EPI 1% **for epidural** 30 ML SDV ONE; MIDAZOLAM 2 MG/2 ML VIAL IVP PRN; NALOXONE HCL 0.4 MG/ML INJ IVP PRN; NS 1,000 ML IV ONE; ONDANSETRON 4 MG/2 ML VIAL IVP ONE; SODIUM TETRADECYL SULFATE 3% 2 ML VIAL IV ONE; fentaNYL 100 MCG/2 ML INJ IVP PRN
[2018-06-19 08:45] VITALS: BP 103/85
== END | disposition home or self-care (01) ==
LOC: FIMAGING 07:36
PROVIDERS: ATTEND Radiology Diagnostic Radiology
PROC: 065Q3ZZ Destruction of Left Saphenous Vein, Percutaneous Approach (ICD-10-PCS; principal; 2018-06-19)
PROC: 3E033TZ Introduction of Destructive Agent into Peripheral Vein, Percutaneous Approach (ICD-10-PCS; principal; 2018-06-19)
DX: I83.892 Varicose veins of left lower extremity with other complications (principal)
CPT/HCPCS: J2250; J2310; J3010

== ENCOUNTER → 2018-07-02 | Outpatient (CLI) | payer OTHER, MEDICARE | LOC: FIMAGING 16:15 ==

== ENCOUNTER → 2018-08-10 | Outpatient (CLI) | payer OTHER, MEDICARE ==
[~2018-08-10] MED LIST changes: -FLUMAZENIL 0.5 MG/5 ML MDV IVP PRN; +IOPAMIDOL (ISOVUE 370) 100 ML BTL IV ONE; -LIDO/EPI 1% **for epidural** 30 ML SDV ONE; -MIDAZOLAM 2 MG/2 ML VIAL IVP PRN; -NALOXONE HCL 0.4 MG/ML INJ IVP PRN; -NS 1,000 ML IV ONE; -ONDANSETRON 4 MG/2 ML VIAL IVP ONE; -SODIUM TETRADECYL SULFATE 3% 2 ML VIAL IV ONE; -fentaNYL 100 MCG/2 ML INJ IVP PRN
== END ==
LOC: FIMAGING 14:56
PROVIDERS: ATTEND Radiology Diagnostic Radiology
DX: I71.4 Abdominal aortic aneurysm, without rupture (principal); T82.898A Other specified complication of vascular prosthetic devices, implants and grafts, initial encounter; K57.30 Diverticulosis of large intestine without perforation or abscess without bleeding
CPT/HCPCS: 74174; Q9967